=== PATIENT | female | born 1985 | race Two or more races ===

== ENCOUNTER → 2023-03-08 | Emergency (ER) | payer SELFPAY ==
[~2023-03-08] MED LIST: IBUP-1456 PO; METH-1182 PO
== END | disposition home or self-care (01) ==
LOC: ER 11:51
DX: S83.8X2A Sprain of other specified parts of left knee, initial encounter (principal); S29.012A Strain of muscle and tendon of back wall of thorax, initial encounter; S00.83XA Contusion of other part of head, initial encounter; V43.62XA Car passenger injured in collision with other type car in traffic accident, initial encounter; Y93.89 Activity, other specified; Y92.410 Unspecified street and highway as the place of occurrence of the external cause; Y99.8 Other external cause status
CPT/HCPCS: 72070; 73562